=== PATIENT | male | born 1970 | race Asian ===

== ENCOUNTER 2017-09-05 03:54 | Emergency (ER) | payer BC, OTHER ==
[2017-09-05] MEDS ORDERED: ASPIRIN 81 MG TABLET, CHEWABLE PO ONE (03:55)
--- NOTE | 2017-09-05 04:22 | ER Document Report ---
ED Cardiac - General Chief Complaint: Chest Pain Stated Complaint: CHEST PAIN Time Seen by Provider: 09/05/17 04:21 Mode of Arrival: Ambulatory Information source: Patient Notes: 47 yo male c/o right sided lower retrosternal chest pain 4/5 sharper at times that radiates into RUQ and back which woke him up at 12:00 [place] thought maybe it was indigestion or another gallbladder attack (prior to 2010) they decided not to remove the GB. Similar mild pinching pain in RUQ this week. Tums did not help. Alphonse cabrera. Hx CAD. stents placed 08/2016 for left chest pain into left arm. Dr. Butler-[facility]. Recent chemical stress test at [facility], called him friday and told him they found restricted flow and that he needs follow up appt with dr. Butler. No nausea or vomiting. No flank pain. Had fried [employer]. TRAVEL OUTSIDE OF THE [place] IN LAST 30 DAYS: No - Related Data Allergies/Adverse Reactions: No Known Allergies Allergy (Verified 08/29/14 07:22) Home Medications: Current Home Medications Aspirin [Aspirin EC] 81 mg PO DAILY 09/05/17 [History] Atorvastatin Calcium 40 mg PO DAILY 09/05/17 [History] Carvedilol 3.125 mg PO Q12 09/05/17 [History] Clopidogrel Bisulfate [Plavix 75 mg Tablet] 75 mg PO DAILY 09/05/17 [History] Furosemide 20 mg PO DAILY 09/05/17 [History] Glimepiride 4 mg PO DAILY 09/05/17 [History] Lisinopril 10 mg PO QHS 09/05/17 [History] Metformin HCl 2,000 mg PO QHS 09/05/17 [History] Potassium Chloride [Klor-Con M20] 20 meq PO DAILY 09/05/17 [History] Past Medical History - General Information source: Patient - Social History Smoking Status: Never Smoker Frequency of alcohol use: Rare - weekend 2 x per month Drug Abuse: None 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 Lives with: Parents - takes care of mom Family History: CAD, Hyperlipidemia, Hypertension - Past Medical History Cardiac Medical History: Reports: Hx Congestive Heart Failure - mild, Hx Coronary Artery Disease, Hx Heart Attack, Hx Hypertension Pulmonary Medical History: Reports: Hx Pneumonia Endocrine Medical History: Reports: Hx Diabetes Mellitus Type 2 - oral meds Surgical Hx: Negative - Immunizations Hx Diphtheria, Pertussis, Tetanus Vaccination: Yes Review of Systems - Review of Systems Constitutional: No symptoms reported EENT: No symptoms reported Cardiovascular: See HPI Respiratory: No symptoms reported Gastrointestinal: See HPI Genitourinary: No symptoms reported Male Genitourinary: No symptoms reported Musculoskeletal: No symptoms reported Skin: No symptoms reported Hematologic/Lymphatic: No symptoms reported Neurological/Psychological: No symptoms reported Physical Exam - Vital signs Vitals: BP 194/121 H 09/05/17 03:54 Interpretation: Normal - Notes Notes: clammy - General General appearance: Appears well, Alert - HEENT Head: Normocephalic, Atraumatic Eyes: Normal Conjunctiva: Normal Pupils: PERRL Mucous membranes: Normal Pharynx: Normal Neck: Supple. No: Lymphadenopathy - Respiratory Respiratory status: No respiratory distress Chest status: Nontender Breath sounds: Normal Chest palpation: Normal - Cardiovascular Rhythm: Regular Heart sounds: Normal auscultation Murmur: No - Abdominal Inspection: Normal Distension: No distension Bowel sounds: Normal Tenderness: Tender - RUQ,, Otto's sign Organomegaly: No organomegaly - Back Back: Normal, Nontender. No: CVA tenderness - Extremities General upper extremity: Normal inspection, Nontender, Normal color, Normal ROM , Normal temperature General lower extremity: Normal inspection, Nontender, Normal color, Normal ROM , Normal temperature, Normal weight bearing. No: Lottie's sign - Neurological Neuro grossly intact: Yes Cognition: Normal Orientation: AAOx4 [place] Coma Scale Eye Opening: Spontaneous [place] Coma Scale Verbal: Oriented [place] Coma Scale Motor: Obeys Commands [place] Coma Scale Total: 15 Speech: Normal Motor strength normal: LUE, RUE, LLE, RLE Sensory: Normal - Psychological Associated symptoms: Normal affect, Normal mood - Skin Skin Temperature: Warm Skin Moisture: Dry Skin Color: Normal Skin irregularity: negative: Rash Course - Re-evaluation Re-evalutation: 09/05/17 05:[address] casillas, she agrees with getting CTA to rule out dissection although pt states he has no hx or aortic problems. 09/05/17 05:35 BP down to 159/92 and pain is still gone. Going to CT. chest xray is negative. 09/05/17 06:38 US 04-18-2010 Wall thickening and trace pericholecystic fluid no gallstones. He also had a HIDA scan which showed an ejection fraction of 23%. 09/05/17 06:42 still no pain. calling the radiologist re: CTA, no specific mention of the aorta. Dr Mahoney is adding that there was no dissection. [phone] 09/05/17 06:52 The gallbladder ultrasound again showed gallbladder wall thickening with small amount of pericholecystic fluid, no stones. 09/05/17 07:[address] Palumbo the general surgeon who will come see the patient and will admit the patient if they choose to do a cholecystectomy today. I also called Dr. Garcia the hospitalist per his request and she will be happy to consult medically for this patient. I transferred the care to Dr. Mckee. 09/05/17 07:46 dr. jon will follow the pt and dr. lee will also consult per her request 09/05/17 15:28 I reviewed the chart this afternoon, the pt was discharged by dr. palumbo with surgical clinic follow up on 09-11. - Vital Signs Vital signs: Temp Pulse Resp BP Pulse Ox 98.0 F 87 19 171/109 H 97 09/05/17 04:04 09/05/17 04:04 09/05/17 11:01 09/05/17 11:01 09/05/17 11:01 - Laboratory Result Diagrams: 09/05/17 04:30 09/05/17 04:30 Laboratory results interpreted by me: 09/05/17 09/05/17 04:30 04:30 RDW 14.1 H Glucose 200 H - EKG Interpretation by Sd EKG shows normal: Sinus rhythm Rate: Normal Rhythm: NSR Discharge - Discharge Clinical Impression: Cholecystitis Hypertension Qualifiers: Hypertension type: essential hypertension Qualified Code(s): I10 - Essential ( primary) hypertension Condition: Stable Disposition: HOME, SELF-CARE Admitting Provider: Surgicalist Unit Admitted: Surgical Floor
[2017-09-05] MEDS ORDERED: MORPHINE SULFATE 10 MG/ML INJ IV ONE (04:42)
[2017-09-05] MEDS ORDERED: ONDANSETRON HCL INJ/PF 4 MG/2 ML SDV IV ONE (04:42)
[2017-09-05] MEDS ORDERED: NORMAL SALINE 1000 ML 1,000 ML IV ONE (04:44)
[2017-09-05 04:46] LABS: ABSOLUTE BASOPHILS # (AUTO) 0.1 10^3/uL (0.0-0.2); ABSOLUTE EOSINOPHILS # (AUTO) 0.2 10^3/uL (0.0-0.6); ABSOLUTE LYMPHOCYTES (AUTO) 1.9 10^3/uL (0.5-4.7); ABSOLUTE MONOCYTES (AUTO) 0.7 10^3/uL (0.1-1.4); ABSOLUTE NEUT (AUTO) 4.7 10^3/uL (1.7-8.2); BASOPHILS % (AUTO) 1.3 % (0-2); EOSINOPHILS % (AUTO) 2.7 % (0-6); HEMATOCRIT 42.1 % (37.9-51.0); HEMOGLOBIN 14.1 g/dL (13.5-17.0); HGB HCT DIFFERENCE 0.2; LYMPHOCYTES % (AUTO) 25.1 % (13-45); MEAN CORPUSCULAR HEMOGLOBIN 29.3 pg (27.0-33.4); MEAN CORPUSCULAR HGB CONC 33.6 g/dL (32.0-36.0); MEAN CORPUSCULAR VOLUME 87 fl (80-97); MONOCYTES % (AUTO) 9.3 % (3-13); RED BLOOD COUNT 4.82 10^6/uL (4.35-5.55); RED CELL DISTRIBUTION WIDTH 14.1 % (11.5-14.0); SEGMENTED NEUTROPHILS % (AUTO) 61.6 % (42-78); WHITE BLOOD COUNT 7.7 10^3/uL (4.0-10.5)
[2017-09-05 05:00] LABS: ALANINE AMINOTRANSFERASE 40 U/L (21-72); ALBUMIN 4.2 g/dL (3.5-5.0); ALKALINE PHOSPHATASE 58 U/L (38-126); ANION GAP 12 (5-19); ASPARTATE AMINO TRANSFERASE 48 U/L (17-59); BILIRUBIN,DIRECT 0.2 mg/dL (0.0-0.4); BILIRUBIN,TOTAL 0.5 mg/dL (0.2-1.3); BLOOD UREA NITROGEN 20 mg/dL (7-20); CALCIUM 9.8 mg/dL (8.4-10.2); CARBON DIOXIDE 30 mmol/L (22-30); CHLORIDE 102 mmol/L (98-107); CREATINE KINASE 91 U/L (55-170); CREATININE RESULT 1.23 mg/dL (0.52-1.25); GLUCOSE 200 mg/dL (75-110); LIPASE 112.4 U/L (23-300); POTASSIUM 4.1 mmol/L (3.6-5.0); SODIUM 143.9 mmol/L (137-145); TOTAL PROTEIN 7.2 g/dL (6.3-8.2)
[2017-09-05 05:11] LABS: CREATINE KINASE MB 2.03 ng/mL (<4.55); TROPONIN I 0.014 ng/mL
--- NOTE | 2017-09-05 05:37 | RADIOLOGY REPORT (SQ) ---
EXAM DESCRIPTION: CHEST SINGLE VIEW CLINICAL HISTORY: cp COMPARISON: 08/29/2014 FINDINGS: Single frontal view of the chest. The cardiomediastinal silhouette has normal size and contour. No consolidation, pneumothorax, or pleural effusion. No displaced rib fractures identified. Upper abdominal soft tissues are unremarkable. IMPRESSION: 1. No acute pulmonary process identified.
--- NOTE | 2017-09-05 06:09 | RADIOLOGY REPORT (SQ) ---
EXAM DESCRIPTION: CTA of the chest per PE protocol with contrast. CLINICAL HISTORY: r/o dissection COMPARISON: None Available. TECHNIQUE: CTA of the chest obtained following the uncomplicated intravenous administration of 100 mL Isovue-370. 3-D/MIP reformatted images of the chest available for evaluation. FINDINGS: Chest: Mediastinal windows demonstrate an adequate contrast bolus. No pulmonary embolus identified. Visualized thyroid gland is unremarkable. Great vessels have normal anatomic configuration. No cardiomegaly, coronary artery atherosclerosis, or pericardial effusion. No abnormalities of the esophagus. Scattered mediastinal lymph nodes are not enlarged by CT criteria. Lung windows demonstrate no consolidation, pneumothorax, or pleural effusion. No abnormalities of the visualized trachea or airways. Limited images of the upper abdomen demonstrate no abnormalities of the visualized liver, spleen, pancreas, adrenal glands, gallbladder, or kidneys. No destructive osseous lesions. Mild degenerative spondylosis of the thoracic spine. DLP: 709.87 mGycm IMPRESSION: 1. No pulmonary embolus identified. This exam was performed according to our departmental dose-optimization program, which includes automated exposure control, adjustment of the mA and/or kV according to patient size and/or use of iterative reconstruction technique.
--- NOTE | 2017-09-05 06:45 | EKG REPORT ---
SEVERITY:- ABNORMAL ECG - SINUS RHYTHM NONSPECIFIC T ABNORMALITIES, LATERAL LEADS : Confirmed by: Roby Cardoso 05-Sep-2017 06:44:35
--- NOTE | 2017-09-05 06:49 | RADIOLOGY REPORT (SQ) ---
EXAM DESCRIPTION: U/S ABDOMEN LIMITED W/O DOP CLINICAL HISTORY: RUQ pain COMPARISON: 09/05/2017 TECHNIQUE: Real-time sonographic images of the right upper abdomen were obtained using a curved multihertz transducer. FINDINGS: The visualized portions of the pancreas are unremarkable. The visualized portions of the aorta and IVC are unremarkable. The liver has normal contour and increased echogenicity. Common bile duct measures 0.3 cm. Hepatopedal flow in the portal vein. Gallbladder wall thickening and small amount of pericholecystic fluid. No definite gallstones identified. The right kidney measures 11.3 cm in length. No hydronephrosis, solid renal mass, or shadowing calculi. IMPRESSION: 1. Gallbladder wall thickening and tiny amount of pericholecystic fluid. No definite gallstones identified. HIDA scan could provide additional information. 2. Hepatic steatosis.
[2017-09-05] MEDS ORDERED: CARVEDILOL 3.125 MG TABLET PO ONE (08:49)
[2017-09-05] MEDS ORDERED: LISINOPRIL 5 MG TABLET PO ONE (08:49)
--- NOTE | 2017-09-05 09:40 | PDOC CONSULTATION ---
History of Present Illness Admission Date/PCP: 09/05/17 07:59 History of Present Illness: This is a 47-year-old male with a past medical history of NV status post 3 stent placements, CHF and diabetes who presented to the service with complaints of right sided chest discomfort. The patient developed right-sided chest pain yesterday. He says that it started after eating fried foods such as fried cauliflower and okra and roasted chicken. The patient has had a history of gallbladder issues in the past. 2008 he had a flare. Issues were addressed with pain control and a plan for gallbladder removal, but removal did not ultimately happen. The patient has had no trouble with his gallbladder since then. He developed right-sided chest pain and right upper quadrant pain. He said that this pain felt similar to when he had a heart attack back in 2013. The patient recently had a stress test with Dr. Butler last week. He was due to follow-up for results later this week. He states that he has outflow tract issues with his heart. He presented to the ED because of his cardiac history and concerns for his chest discomfort. In the emergency room the patient was found to have gallbladder wall thickening and pericholecystic fluid. HIDA scan was recommended. The medicine service was asked to consult for medical management. In my conversation with the patient, he denies any associated nausea vomiting, shortness of breath. His last bowel movement was yesterday. He denies any chills, constipation, diarrhea or bloody bowel movements. He is received a dose of morphine and states that his pain is completely gone. He tells me that if at all possible he would like to go home. He states that if he can push this off to the new year he would be able to get paid time off for recovery. He is willing to stay and be admitted if it is absolutely necessary. I have stated to him that if he chooses to do this that he would likely be living with a fair amount of discomfort. The patient acknowledges this and is willing to give it a try if the surgeon feels that it is reasonable for him to go home and delay surgery. Past Medical History Cardiac Medical History: Reports: Congestive Heart Failure - mild, Coronary Artery Disease, Myocardial Infarction, Hypertension Pulmonary Medical History: Reports: Pneumonia Endocrine Medical History: Reports: Diabetes Mellitus Type 2 - oral meds Social History Information Source: Patient Lives with: Parents - takes care of mom Smoking Status: Never Smoker - Advance Directive Resuscitation Status: Full Code Family History Family History: CAD, Hyperlipidemia, Hypertension Parental Family History Reviewed: Yes - Father of [place] at the age of 65. Children Family History Reviewed: Yes Sibling(s) Family History Reviewed.: NA Medication/Allergy Home Medications: Aspirin [Aspirin EC] 81 mg PO DAILY 09/05/17 Atorvastatin Calcium 40 mg PO DAILY 09/05/17 Carvedilol 3.125 mg PO Q12 09/05/17 Clopidogrel Bisulfate [Plavix 75 mg Tablet] 75 mg PO DAILY 09/05/17 Furosemide 20 mg PO DAILY 09/05/17 Glimepiride 4 mg PO DAILY 09/05/17 Lisinopril 10 mg PO QHS 09/05/17 Metformin HCl 2,000 mg PO QHS 09/05/17 Potassium Chloride [Klor-Con M20] 20 meq PO DAILY 09/05/17 Allergies/Adverse Reactions: No Known Allergies Allergy (Verified 08/29/14 07:22) Review of Systems Review of Systems: Review of systems is positive as that already listed in the HPI. In addition to this the patient states that he is gained a few pounds over the last month due to increased caloric intake, he has some arthritic changes of the right hand and feels that his appetite has been good. He rarely uses Motrin to treat any pains that he may have. He denies any dysuria or difficulty getting his stream started. He denies blood in the stool, blood in the urine, coughing up blood or throwing up blood. Physical Exam Vital Signs: Temp Pulse Resp BP Pulse Ox 98.0 F 87 24 H 165/114 H 98 09/05/17 04:04 09/05/17 04:04 09/05/17 08:01 09/05/17 08:01 09/05/17 08:01 Results Laboratory Results: 09/05/17 08:18 Troponin I 0.021 Impressions: Chest X-Ray 09/05/17 03:55 IMPRESSION: 1. No acute pulmonary process identified. Abdomen Ultrasound 09/05/17 04:43 IMPRESSION: 1. Gallbladder wall thickening and tiny amount of pericholecystic fluid. No definite gallstones identified. HIDA scan could provide additional information. 2. Hepatic steatosis. Chest/Abdomen CTA 12/15/17 05:20 IMPRESSION: 1. No pulmonary embolus identified. This exam was performed according to our departmental dose-optimization program, which includes automated exposure control, adjustment of the mA and/or kV according to patient size and/or use of iterative reconstruction technique. Assessment & Plan - Diagnosis (1) Cholecystitis Is this a current diagnosis for this admission?: Yes Plan: Gallbladder wall thickening and a tiny amount of sofy-cholecystic fluid was found. No definite gallstones were identified. HIDA scan was recommended. Hepatic steatosis was also seen. According to the patient he is willing to stay and get the HIDA scan done. However, he would prefer to go home from the emergency room with pain control and wait to the new year to get his gallbladder out. He is willing to stay and have his gallbladder out if that is absolutely necessary; but he would prefer to go home and wait this out. I have talked with Dr. Palumbo who is seeing the patient from the surgery group. He will revisit the issue with the patient and determine whether or not the patient can reasonably go home and try and wait to get surgery or even a HIDA scan. (2) CAD (coronary artery disease) Qualifiers: Coronary Disease-Associated Artery/Lesion type: [place] artery [place] vs. transplanted heart: [place] heart Associated angina: without angina Qualified Code(s): I25.10 - Atherosclerotic heart disease of [place] coronary artery without angina pectoris Is this a current diagnosis for this admission?: Yes Plan: Patient has a history of NV status post 3 stents[address] This took place in 2013. The patient is on Plavix as an outpatient. He follows with Dr. Butler out [facility]. Patient recently had a stress test last week and is due to follow-up for the results. He states that he was told that he has trouble with "outflow tract." Continue home medications after they are verified. If the patient is to proceed to surgery his aspirin and Plavix will need to be held (3) Diabetes Qualifiers: Diabetes mellitus type: type 2 Is this a current diagnosis for this admission?: Yes Plan: Patient is on metformin and glyburide at home. If he is admitted I will hold his metformin. And begin sliding scale insulin with diabetic diet and q. before meals at bedtime blood sugar checks (4) Dyslipidemia Is this a current diagnosis for this admission?: Yes Plan: Continue statin after medications are verified if the patient is admitted (5) Hypertension Qualifiers: Hypertension type: essential hypertension Qualified Code(s): I10 - Essential (primary) hypertension Plan: Continue antihypertensives after verified by pharmacy if the patient is admitted. He states that his last dose of medications were yesterday evening. - Time Time Spent: 50 to 70 Minutes - Inpatient Certification Based on my medical assessment, after consideration of the patient's comorbidities, presenting symptoms, or acuity I expect that the services needed warrant INPATIENT care.: Yes
--- NOTE | 2017-09-05 11:03 | PDOC CONSULTATION ---
Consultation Consult Date: 09/05/17 Consult reason:: RUQ pains History of Present Illness Admission Date/PCP: 09/05/17 07:59 History of Present Illness: C/O RUQ pains after a fatty meal for dinner. Came to ED and had US gall bladder showed thickened wall. No stones He had a stress test last week with possible abnormality. Has 3 coronary stents placed in [place]. Scheduled to see his zigzagger in [place] next week. His pains have subsided after getting morphine early this am and has not come back. Past Medical History Cardiac Medical History: Reports: Congestive Heart Failure - mild, Coronary Artery Disease, Myocardial Infarction, Hypertension Pulmonary Medical History: Reports: Pneumonia Endocrine Medical History: Reports: Diabetes Mellitus Type 2 - oral meds GI History Note: Had the same symptoms in 2009. US showed thickened gallbladder wall with no stones. GB ejection Fraction on HIDA scan showed decreased to 23%. Past Surgical History Past Surgical History: Reports: Coronary Stent, Other Social History Lives with: Parents - takes care of mom Smoking Status: Never Smoker - Advance Directive Resuscitation Status: Full Code Family History Family History: CAD, Hyperlipidemia, Hypertension Parental Family History Reviewed: Yes - Father of [place] age 64. Mother ALIVE AND WELL Children Family History Reviewed: No Sibling(s) Family History Reviewed.: No Medication/Allergy Home Medications: Aspirin [Aspirin EC] 81 mg PO DAILY 09/05/17 Atorvastatin Calcium 40 mg PO DAILY 09/05/17 Carvedilol 3.125 mg PO Q12 09/05/17 Clopidogrel Bisulfate [Plavix 75 mg Tablet] 75 mg PO DAILY 09/05/17 Furosemide 20 mg PO DAILY 09/05/17 Glimepiride 4 mg PO DAILY 09/05/17 Lisinopril 10 mg PO QHS 09/05/17 Metformin HCl 2,000 mg PO QHS 09/05/17 Potassium Chloride [Klor-Con M20] 20 meq PO DAILY 09/05/17 Allergies/Adverse Reactions: No Known Allergies Allergy (Verified 08/29/14 07:22) Review of Systems Constitutional: PRESENT: other - no fever/chills Eyes: PRESENT: other - no visual/hearing problems Nose, Mouth, and Throat: PRESENT: other - no sore throat Cardiovascular: PRESENT: other - no chest pains Respiratory: PRESENT: other - no cough Gastrointestinal: PRESENT: abdominal pain Genitourinary: PRESENT: other - no dysuria Musculoskeletal: PRESENT: other - no joint pains Integumentary: PRESENT: other - no rash Neurological: PRESENT: other - no seizures Psychiatric: PRESENT: other - no anxiety Endocrine: PRESENT: other - no polyuria/polydipsia Hematologic/Lymphatic: PRESENT: other - no easy bruisability Physical Exam Vital Signs: Temp Pulse Resp BP Pulse Ox 98.0 F 87 24 H 165/114 H 98 09/05/17 04:04 09/05/17 04:04 09/05/17 08:01 09/05/17 08:01 09/05/17 08:01 General appearance: PRESENT: no acute distress Head exam: PRESENT: atraumatic Eye exam: PRESENT: conjunctiva pink Ear exam: PRESENT: normal external ear exam Mouth exam: PRESENT: moist, tongue midline Neck exam: PRESENT: full ROM Respiratory exam: PRESENT: clear to auscultation marianne Cardiovascular exam: PRESENT: RRR Pulses: PRESENT: normal radial pulses Vascular exam: PRESENT: normal capillary refill GI/Abdominal exam: PRESENT: soft - nontender Rectal exam: PRESENT: deferred Extremities exam: PRESENT: full ROM Musculoskeletal exam: PRESENT: ambulatory Neurological exam: PRESENT: alert, oriented to person, oriented to place, oriented to time, oriented to situation Skin exam: PRESENT: normal color, warm Results Laboratory Results: 09/05/17 08:18 Troponin I 0.021 Impressions: Chest X-Ray 09/05/17 03:55 IMPRESSION: 1. No acute pulmonary process identified. Abdomen Ultrasound 09/05/17 04:43 IMPRESSION: 1. Gallbladder wall thickening and tiny amount of pericholecystic fluid. No definite gallstones identified. HIDA scan could provide additional information. 2. Hepatic steatosis. Chest/Abdomen CTA 09/05/17 05:20 IMPRESSION: 1. No pulmonary embolus identified. This exam was performed according to our departmental dose-optimization program, which includes automated exposure control, adjustment of the mA and/or kV according to patient size and/or use of iterative reconstruction technique. Assessment & Plan - Time Time Spent: 30 to 50 Minutes - Plan Summary Plan Summary: Advised low fat diet. Discharge and follow up surgical clinic 09/11 at 3:15 pm
[2017-09-05 11:06] VITALS: BP 171/109
== END 2017-09-05 11:26 | disposition home or self-care (01) ==
LOC: ER 03:54 → UNDOADMIN 07:59 → EH 07:59 → UNDODISIN 11:26
DX: K81.9 Cholecystitis, unspecified (principal); I10 Essential (primary) hypertension; R07.9 Chest pain, unspecified; R10.11 Right upper quadrant pain; M54.9 Dorsalgia, unspecified; I25.10 Atherosclerotic heart disease of native coronary artery without angina pectoris; Z79.899 Other long term (current) drug therapy
CPT/HCPCS: 93005; 99285; 96361; 96374; 96375; 36415; 82553; 82550; 83690; 85025; 80053; 84484; 71010; 76705; 71275; 93010; J2270; J2405; J7030

== ENCOUNTER 2017-10-08 08:15 | Day surgery (SDC) | payer OTHER ==
[2017-10-03 11:04] LABS: HEMOGLOBIN 15.2 g/dL (13.5-17.0); MEAN CORPUSCULAR HEMOGLOBIN 29.6 pg (27.0-33.4); MEAN CORPUSCULAR HGB CONC 33.7 g/dL (32.0-36.0); MEAN CORPUSCULAR VOLUME 88 fl (80-97); PLATELET COUNT 344 10^3/uL (150-450); RED BLOOD COUNT 5.11 10^6/uL (4.35-5.55); RED CELL DISTRIBUTION WIDTH 13.9 % (11.5-14.0)
[2017-10-03 11:23] LABS: ALANINE AMINOTRANSFERASE 38 U/L (21-72); ALBUMIN 4.6 g/dL (3.5-5.0); ALKALINE PHOSPHATASE 54 U/L (38-126); AMYLASE 68 U/L (30-110); ANION GAP 13 (5-19); ASPARTATE AMINO TRANSFERASE 23 U/L (17-59); BILIRUBIN,DIRECT 0.1 mg/dL (0.0-0.4); BILIRUBIN,TOTAL 0.8 mg/dL (0.2-1.3); BLOOD UREA NITROGEN 14 mg/dL (7-20); CALCIUM 9.4 mg/dL (8.4-10.2); CARBON DIOXIDE 27 mmol/L (22-30); CHLORIDE 101 mmol/L (98-107); GLUCOSE 152 mg/dL (75-110); POTASSIUM 4.5 mmol/L (3.6-5.0); TOTAL PROTEIN 7.2 g/dL (6.3-8.2)
[~2017-10-08 08:15] MED LIST: ACETAMINOPHEN 325 MG TABLET PO PRN; CEFAZOLIN 1 GM/D5W RTU 1 GM/50 ML RTUPB IV PRN; LACTATED RINGERS 1000 ML IV PRN; LIDOCAINE 0.5% INJ-PF (5 MG/ML) 50 ML SDV SUBCUT PRN
[2017-10-08 09:07] LABS: INTERNATIONAL RATION (INR) 0.95; PROTHROMBIN TIME 13.4 SEC (11.4-15.4)
[2017-10-08 09:08] LABS: PARTIAL THROMBOPLASTIN TIME 32.1 SEC (23.5-35.8)
[2017-10-08 09:31] LABS: POTASSIUM 4.3 mmol/L (3.6-5.0)
[2017-10-08] MEDS ORDERED: BUPIVACAINE HCL 0.25 % INJ/PF (2.5 MG/1 ML) 30 ML VIAL ONE (10:11)
[2017-10-08] MEDS ORDERED: FENTANYL CITRATE INJ/PF 100 MCG/2 ML AMPUL ONE (11:00)
[2017-10-08] MEDS ORDERED: MIDAZOLAM 2 MG/2 ML INJ ONE (11:00)
[2017-10-08] MEDS ORDERED: HYDROMORPHONE HCL INJ/PF 2 MG/ML AMPULE ONE (11:01)
[2017-10-08] MEDS ORDERED: ACETAMINOPHEN 100 ML IV ONE (11:01)
[2017-10-08] MEDS ORDERED: PROPOFOL INJ 200 MG/20 ML VIAL IV ONE (11:01)
[2017-10-08] MEDS ORDERED: KETAMINE HCL INJ 500 MG/10 ML VIAL ONE (11:19)
[2017-10-08] MEDS ORDERED: PROMETHAZINE HCL INJ 25 MG/1 ML VIAL IV PRN (12:08)
[2017-10-08] MEDS ORDERED: FENTANYL CITRATE INJ/PF 100 MCG/2 ML AMPUL IV PRN ×3 (12:08)
[2017-10-08] MEDS ORDERED: MORPHINE SULFATE 10 MG/ML INJ IV PRN (12:08)
[2017-10-08] MEDS ORDERED: DIPHENHYDRAMINE HCL 50 MG/ML VIAL IV PRN (12:08)
--- NOTE | 2017-10-08 12:21 | Operative Report ---
Operative Report DATE OF SURGERY: 10/08/17 PREOPERATIVE DIAGNOSIS: Symptomatic cholelithiasis with cholecystitis POSTOPERATIVE DIAGNOSIS: Same OPERATION: Laparoscopic cholecystectomy SURGEON: ALEKS DUMONT [employer] MANAGER: JOSSY ARAMBULA ANESTHESIA: GA TISSUE REMOVED OR ALTERED: Gallbladder contents COMPLICATIONS: None ESTIMATED BLOOD LOSS: Scant INTRAOPERATIVE FINDINGS: See below PROCEDURE: After obtaining informed consent, the patient was taken to the operating room. General Anesthesia was induced; the arms were extended, and the abdomen was exposed, and prepped and draped in a sterile fashion. Instrumentation was set up for laparoscopic cholecystectomy. Surgical plan and surgical timeout were conducted. A vertical incision was made above the umbilicus, and a verres needle was inserted uneventfully into the peritoneal cavity. Pneumoperitoneum was established. The verres needle was removed and a 5 mm trocar was inserted and a 5 mm flexible laparoscope was inserted. Visualization of the peritoneal cavity confirmed safe uneventful entry. Under direct visualization 3 additional 5 mm ports were established, one in the subxiphoid position and second in the subcostal position. Visualization of the hepatobiliary anatomy revealed no anatomic variations. A grasper was placed on the fundus of the gallbladder and the gallbladder is elevated over the right surface of the liver; a second grasper was used to grasp the infundibulum of the gallbladder. The neck of the gallbladder and junction with the cystic duct was dissected out. The Cystic artery was in its usual location medial and cephalad to the cystic duct. The cystic artery was surrounded with a right angle clamp, clipped twice proximally and divided with laparoscopic scissors. We now opened the triangle of Calot by dividing the peritoneal reflection on both the medial and lateral sides of the cystic duct infundibular junction. The critical view was obtained. We now milked the cystic duct of any possible stones, clipped the cystic duct approximately 2 times once distally and divided with scissors. The gallbladder was now removed from the undersurface of the liver using hook cautery dissection. Graspers were repositioned and the gallbladder was removed uneventfully from the abdominal cavity through the super umbilical port site incision. The specimen was examined, then passed off to pathology for permanent analysis. We returned to the peritoneal cavity check for bleeding, and evidence of bile leak, and there was none. We Confirmed satisfactory placement of clips on cystic duct and cystic artery were secured . At this point we felt the operation was complete. The subcutaneous tissue was then anesthetized with quarter percent Marcaine Sponge and needle counts are correct. All ports removed under direct visualization pneumoperitoneum evacuated, and 5 mm port wounds closed with 3-0 Vicryl suture, benzoin and Steri-Strips. The patient was extubated, and taken to the recovery room in stable condition. The physician assistant grocery store manager, Ms. Leon, provided assistance during this case by: Assisting and port insertion, retracting tissue, instillation of local anesthesia and closure of skin incisions.
[2017-10-08] MEDS ORDERED: OXYCODONE-ACETAMINOPHEN 5-325 MG TABLET PO PRN (12:24)
[2017-10-08] MEDS ORDERED: ONDANSETRON HCL INJ/PF 4 MG/2 ML SDV IV PRN (12:24)
--- NOTE | 2017-10-08 12:24 | PDOC DISCHARGE SUMMARY ---
Discharge Summary (SDC) - Discharge Final Diagnosis: Cholecystitis Date of Surgery: 10/08/17 Discharge Date: 10/08/17 Condition: Stable Treatment or Instructions: [facility] [address], [place] [address] Discharge Instructions: Laparoscopic Surgery 1. General Information: a. DO NOT DRIVE a car or operate dangerous machinery for 3-4 days or while taking narcotic pain pills. b. DO NOT consume alcohol, tranquilizers, sleeping medications or any non- prescribed medications for 24 hours unless approved by your doctor or as long as taking narcotic prescription medications. c. DO NOT make important decisions or sign any important papers for the first 24 hours after surgery. d. When discharged home the same day of surgery have a responsible person with you for the first night. 2. Activity Restrictions: 2 weeks a. NO heavy lifting, straining abdominal muscles, bending over a lot, yard work, house work, or sports for [address] NOT drive for 3-4 days. c. It is fine to go for walks, up and down steps, ride in a car. d. Elevate your head when sleeping/resting. 3. Treatment: a. You may shower 24 hours after surgery, no baths or swimming for 2 weeks. Remove band-aids or dressings before shower but leave paper strips (steri-strips ) on the skin to fall off on their own. If still on at postoperative visit they will be removed then. b. Drainage of fluid or blood is not unusual from an incision. If occurs, you can clean with peroxide and cotton ball daily and cover with dry gauze until the wound seals. c. If a lot of bleeding occurs, you can hold pressure with a gauze or cloth over the site for 10 minutes and it will usually stop. If bleeding continues you will need to call for possible evaluation in office or emergency room. 4. Medications: a. _ Toradol 10 mg may be taken for pain as needed, one tablet every 6 hours. You may switch to plain Tylenol, Advil or Aleve as you transition from the narcotic. Many adults find good pain relief with Advil 600-800 mg three times a day with meals. This can cause indigestion, ulcers, and kidney problems with long-term use. b. You should resume all normal medications unless a change is specified by your doctors. 5. Diet: Begin with clear liquids and may progress to your normal diet if not nauseated. No high fat, high protein foods the day of surgery. 6. The following may occur after laparoscopic surgery: a. Shoulder or upper back ache from retained gas that should resolve in 1-2 days b. Soreness and bruising at incision sites will resolve with time. c. Scrotal swelling (labia in women) and bruising is often seen after hernia surgery. d. Sore throat e. Fatigue may last days to weeks. f. Difficulty urinating may occur and may need to come into emergency room for urinary catheter placement. 7. Notify Physician If: a. Worsening or pain not improved with pain medication b. Persistent nausea and vomiting c. Fever above 101 d. Persistent bleeding or swelling at operative site e. Unable to urinate and uncomfortable bladder 6-8 hours after surgery 8..Follow Up Care: a. Schedule a follow up appointment with your doctor for 2 weeks. In the event of any postoperative problems or questions or you may call the office during business hours or the On-Call physician evenings and weekends at [facility]. [facility] I understand the instructions for my postoperative care as described above and a copy has been given to me. Patient/Significant Other Witness Date Prescriptions: Ketorolac Tromethamine [Toradol 10 mg Tablet] 10 mg PO Q6HP PRN #25 tablet PRN Reason: Discharge Diet: Clear Liquids Discharge Activity: Activity As Tolerated, Walk Frequently Report the Following to Your Physician Immediately: Nausea, Vomiting, Fever over 101 Degrees, Drainage-Foul Smelling
[2017-10-08] MEDS ORDERED: DIPHENHYDRAMINE HCL 50 MG/ML VIAL ONE (13:15)
[2017-10-08 14:27] VITALS: BP 155/106
[2017-10-08] MEDS ORDERED: ONDANSETRON HCL INJ/PF 4 MG/2 ML SDV ONE (14:42)
[2017-10-08] MEDS ORDERED: NEOSTIGMINE METHYLSULFATE 10 MG/10 ML VIAL ONE (14:42)
[2017-10-08] MEDS ORDERED: ROCURONIUM BROMIDE INJ 50 MG/5 ML VIAL IV ONE (14:42)
[2017-10-08] MEDS ORDERED: DEXAMETHASONE SOD PHOSPHATE INJ 4 MG/1 ML VIAL ONE (14:42)
[2017-10-08] MEDS ORDERED: GLYCOPYRROLATE INJ 0.4 MG/2 ML VIAL ONE (14:42)
[2017-10-08] MEDS ORDERED: SUCCINYLCHOLINE CHLORIDE INJ 200 MG/10 ML VIAL ONE (14:42)
[2017-10-08] MEDS ORDERED: LIDOCAINE 2% INJ-PF (20 MG/ML) 2 ML AMPUL ONE (14:42)
== END 2017-10-08 14:20 | disposition home or self-care (01) ==
LOC: OROUT 08:15
PROVIDERS: ATTEND Surgery
PROC: 0FT44ZZ Resection of Gallbladder, Percutaneous Endoscopic Approach (ICD-10-PCS; principal; 2017-10-08 11:00)
DX: K80.10 Calculus of gallbladder with chronic cholecystitis without obstruction (principal); I10 Essential (primary) hypertension; I25.2 Old myocardial infarction; I25.10 Atherosclerotic heart disease of native coronary artery without angina pectoris; Z86.73 Personal history of transient ischemic attack (TIA), and cerebral infarction without residual deficits; E11.9 Type 2 diabetes mellitus without complications; Z95.5 Presence of coronary angioplasty implant and graft; M19.90 Unspecified osteoarthritis, unspecified site; Z79.84 Long term (current) use of oral hypoglycemic drugs; Z79.82 Long term (current) use of aspirin; Z79.02 Long term (current) use of antithrombotics/antiplatelets; Z79.899 Other long term (current) drug therapy
CPT/HCPCS: 47562; 36415 ×2; 82150; 82947; 84132; 85027; 85610; 85730; 80076; 80048; 88304 ×2; J2250; J0690; J3490 ×3; J1100; J1200; J3010; J1170; J0330; J2405; J2704; J0131; 790